=== PATIENT | female | born 1995 | race Caucasian/White ===

== ENCOUNTER 2017-02-27 13:00 | Emergency (ER) | payer BC ==
[~2017-02-27] VITALS: Ht 170.2 cm; Wt 69.3 kg
[~2017-02-27 13:00] MED LIST: ACYC-57 PO; BCPILLS PO
[2017-02-27 13:07] VITALS: Ht 170.2 cm; Wt 69.3 kg
[2017-02-27] MEDS ORDERED: VALA500T60 PO (13:14)
[2017-02-27] MEDS ORDERED: XYLOCAINE 1%/SOD BICARB 20 ML VIAL INFIL ONE (13:30)
--- NOTE | 2017-02-27 13:57 | DIAGNOSTIC IMAGING REPORT ---
RIGHT MIDDLE FINGER 3 VIEWS HISTORY: Right middle finger laceration. COMPARISON: None. FINDINGS: There is no fracture or dislocation. Mild soft tissue swelling and a small laceration at the distal middle finger. No radiopaque foreign bodies. IMPRESSION: No fractures. Distal soft tissue laceration. Electronically signed by: Dmitri Dominguez M.D. 02/27/2017 1:56 PM Dictated Date/Time: 02/27/2017 1:54 PM
[2017-02-27 14:42] VITALS: BP 133/79; PULSE 74; TEMP 36.8; O2SAT 98
--- NOTE | 2017-02-28 21:49 | EMERGENCY ROOM VISIT NOTE ---
ED Visit Note First contact with patient: 13:18 Chief Complaint: Right middle finger laceration. History of Present Illness: Ms. Levy is a 21-year-old white female who ambulates into the ED complaining of a right middle finger laceration. Patient reports less than 1 hour ago she was leaving her house and accidentally closed her right middle finger in a metal door. When this occurs she sustained a laceration and pain over the distal phalanx of the right middle finger. She control bleeding but did not wash the wound. Currently she is complaining of throbbing over the area of the wound. She rates her discomfort 1/10. Her pain is nonradiating. Her pain worsens with palpation. She has not identified any alleviating factors related to the pain. She has not taken any medication for pain prior to arrival at the hospital. She denies any associated symptoms including other finger pain, proximal right middle finger pain, finger weakness/numbness/tingling. Review of Systems: As noted above in history of present illness. Past Medical History: Patient denies. Current Medications: Patient denies. Allergies to Medications: Patient denies. Social History: Patient is currently employed and is University student; she feels safe in her home environment; she denies tobacco and alcohol use. Tetanus Immunization Status: Patient reports up-to-date. Physical Examination: Vital Signs: Date Time Temp Pulse Resp B/P (MAP) Pulse Ox O2 Delivery O2 Flow Rate FiO2 02/27/17 14:42 36.8 74 18 133/79 98 02/27/17 13:07 36.8 85 18 154/94 100 Room Air GENERAL: 21-year-old female in mild distress due to pain, nontoxic-appearing, afebrile and hemodynamically stable. Patient is tearful and anxious. NEUROLOGICAL: Awake, alert and oriented to person, place and time. Answering questions appropriately and following commands. Normal gait. Good hand eye coordination. No focal motor or sensory deficits. SKIN: Warm, dry and pink. Right Middle Finger: 1.8 cm full-thickness laceration over the anterior distal aspect of the right middle finger. No active bleeding. RIGHT HAND: Soft tissue injury as noted above. No gross bony deformity. Mild tenderness over the distal phalanx of the right middle finger. I do not appreciate any bony crepitus. There is mild swelling and early ecchymosis in this area. No tenderness over the MCP, PIP or DIP joint of the middle finger. She was able to flex and extend the MCP, PIP and DIP joints without difficulty and against resistance. Throughout the finger the skin was warm and pink and capillary refill is brisk. She was able to distinguish light sensations through all dermatomes of the finger. ED Course: Patient is assessed as noted above. Patient's medication list was reviewed. Right Hand X-Rays: Were read by myself and the radiologist showing no acute fractures or dislocations. Wound Repair: Complexity: Basic Verbal consent was obtained after the risks and benefits were explained. The skin was prepped with betadine and a sterile field set. Wound edges of the wound was anesthetized with 1.2 ml buffered 1% lidocaine. The wound was explored for foreign bodies and none found. Copious irrigation was performed using sterile saline. With direct pressure the bleeding subsided. Debridement was not performed. The wound edges were approximated using 5-0 Ethilon with 4 simple interrupted sutures. Hemostasis and excellent approximation was achieved. Antibacterial ointment and a sterile dressing applied. No complications and the patient tolerated the procedure well. Patient was educated about tonight's findings and instructed on her treatment plan; she verbalizes understanding and agreement with this plan. Clinical Impression: Laceration of the right middle finger Disposition: Patient discharged home in stable condition; prior to departure he was reassessed and subjectively reported pain and symptom-free Plan: Comfort measures, wound care, and signs of infection were discussed with the patient. Patient was encouraged to follow-up with PCP or return to the ED for signs of infection and/or suture removal in 10-12 days.
== END 2017-02-27 14:43 | disposition home or self-care (01) ==
LOC: C.EDB 13:01 → C.EDD 14:43
DX: S61.212A Laceration without foreign body of right middle finger without damage to nail, initial encounter (principal); W45.8XXA Other foreign body or object entering through skin, initial encounter